=== PATIENT | female | born 1975 | race Caucasian/White ===

== ENCOUNTER 2017-04-20 11:54 | Emergency (ER) | payer OTHER, SELFPAY ==
--- NOTE | 2017-05-06 16:46 | ER ---
ADMIT: 04/20/2017 RM/LOC: ER [facility] MR#: [id number] [facility] [address] [place], [place] [id number] [address] [place] [address] Emergency Room Report SEX: F AGE: 42 : 1975 DATE: 04/20/2017 ADDENDUM: CHIEF COMPLAINT: Syncopal episode. HISTORY OF PRESENT ILLNESS: This is a 42-year-old female who had a syncopal episode x2, initially on just going to the bathroom, and then a few minutes later. I did speak with Dr. Cardoza regarding this patient. He will follow her up this week. CLINICAL IMPRESSION: Syncope x2. She was also discharged home with a Holter monitor. FLAVIA Mccabe / Santhosh Nevarez MD / modl JOB #: [id number] CC: Santhosh Nevarez MD, Attending Physician Lady Peters MD, Family Physician
== END 2017-04-20 15:15 | disposition home or self-care (01) ==
LOC: ER 11:54
DX: R55 Syncope and collapse (principal); Z90.49 Acquired absence of other specified parts of digestive tract; Z98.890 Other specified postprocedural states; Z79.899 Other long term (current) drug therapy; W18.11XA Fall from or off toilet without subsequent striking against object, initial encounter; Y92.002 Bathroom of unspecified non-institutional (private) residence as the place of occurrence of the external cause